=== PATIENT | female | born 1940 | race Caucasian/White ===

== ENCOUNTER 2019-02-07 12:03 | Emergency (ER) | payer OTHER ==
[2019-02-07] MEDS: LIDOCAINE 2% (MDV) 20 ML INJ INJ (16:00)
== END 2019-02-07 17:47 | disposition home or self-care (01) ==
LOC: FTE 12:03
DX: S61.412A Laceration without foreign body of left hand, initial encounter (principal); I10 Essential (primary) hypertension; E03.9 Hypothyroidism, unspecified; W22.8XXA Striking against or struck by other objects, initial encounter; Y92.9 Unspecified place or not applicable
CPT/HCPCS: 12002; 73130-LT; 99283-25